=== PATIENT | female | born 1940 | race Two or more races ===

== ENCOUNTER → 2022-03-20 10:00 | Outpatient (BNVA) | payer MEDICARE, OTHER, SELFPAY | PROVIDERS: PCP Physician Assistant Medical; Visit Provider Internal Medicine Rheumatology | DX: M12.812 Other specific arthropathies, not elsewhere classified, left shoulder (principal); M48.061 Spinal stenosis, lumbar region without neurogenic claudication; Z96.611 Presence of right artificial shoulder joint | CPT/HCPCS: 20610; Q3014 ==